=== PATIENT | male | born 1980 | race Caucasian/White ===

== ENCOUNTER 2022-07-20 02:26 | Emergency (ER) | payer OTHER ==
[~2022-07-20] VITALS: Ht 180.3 cm; Wt 115.7 kg
[2022-07-20 02:45] VITALS: BP 118/63
[2022-07-20 02:50] VITALS: BP 118/63
[2022-07-20] MEDS ORDERED: HYDROcodone/APAP 5/325 MG 1 TAB TAB PO ONE (06:10)
[2022-07-20] MEDS ORDERED: IBUP-2213 PO (06:11)
[2022-07-20] MEDS ORDERED: ACET-9525 PO (06:11)
[2022-07-20] MEDS ORDERED: ONDA-188 PO (06:11)
== END 2022-07-20 07:00 | disposition home or self-care (01) ==
LOC: MED 02:26
DX: S82.852A Displaced trimalleolar fracture of left lower leg, initial encounter for closed fracture (principal); V00.141A Fall from scooter (nonmotorized), initial encounter; Y93.89 Activity, other specified; Y92.89 Other specified places as the place of occurrence of the external cause; Y99.8 Other external cause status
CPT/HCPCS: 29515; 73610; 73630; 90471; 90715; 99284